=== PATIENT | male | born 1980 | race African-American/Black ===

== ENCOUNTER 2020-05-28 17:01 | Emergency (ER) | payer SELFPAY ==
[~2020-05-28] VITALS: Ht 182.9 cm; Wt 77.0 kg
[2020-05-28] MEDS ORDERED: SODIUM CHLORIDE 0.9% 1,000 ML IV ONE (18:15)
[2020-05-28 19:08] LABS: BASOPHILS % 0.9 % (0.0-2.0); EOSINOPHILS % 1.9 % (0.0-5.0); HEMATOCRIT. 46.8 % (42.0-52.0); HEMOGLOBIN. 15.4 g/dL (14.0-18.0); LYMPHOCYTES % 20.2 % (20.0-50.0); MEAN PLATELET VOLUME 7.3 fl (7.4-10.4); MONOCYTES % 6.6 % (2.0-8.0); NEUTROPHILS % 70.4 % (40.0-76.0); PLATELET 255 x1000/uL (130-400); RED BLOOD CELL COUNT 5.32 mill/uL (4.7-6.1); RED CELL DISTRIBUTION WIDTH 14.7 % (11.6-14.6)
[2020-05-28 19:18] LABS: CHLORIDE 109 mEq/L (98-107)
[2020-05-28 19:22] LABS: ETHANOL BLOOD < 10 mg/dL
[2020-05-29 02:00] VITALS: BP 109/53
== END 2020-05-29 02:20 | disposition home or self-care (01) ==
LOC: ER 17:01
DX: T43.621A Poisoning by amphetamines, accidental (unintentional), initial encounter (principal); R45.851 Suicidal ideations; F15.10 Other stimulant abuse, uncomplicated; F17.210 Nicotine dependence, cigarettes, uncomplicated; Z71.6 Tobacco abuse counseling; Y92.89 Other specified places as the place of occurrence of the external cause
CPT/HCPCS: 36415; 80053; 80307; 80320; 80329; 85025; 93005; 96360; 99285; 99406; J7030; G0480